=== PATIENT | female | born 1955 | race Caucasian/White ===

== ENCOUNTER 2024-02-16 08:17 | Emergency (ER) | payer OTHER, SELFPAY ==
[2024-02-16] VITALS (7 sets, daily range): BP systolic 113–152; BP diastolic 63–106; BMI 15.5
--- NOTE | 2024-02-16 09:14 | ED.GENMED ---
History of Present Illness
General
Chief Complaint: Abdominal Pain
Time Seen by Provider: 02/16/24 09:01
History of Present Illness
History of Present Illness:
Patient is a 68-year-old female with a history of fibromyalgia, gastritis, chronic abdominal pain who presents to the emergency department with chronic abdominal pain. She states her symptoms have been ongoing for years. She reports worsening
stress recently with regards to her mother who is on hospice. She notes that this typically makes her pain worse. She reports severe epigastric abdominal pain. She denies any vomiting or nausea. Denies any constipation or diarrhea. Pain is not
radiating. States that she takes diazepam for this. Notes that when she was given Dilaudid in the past this helped. Patient has been worked up for this and has had an abdominal MRI last year that was normal.
Past History
Past History
ED Past Medical History: COPD, GERD and Other (fibermyalgia); Negative HTN or Hypercholesterolemia
ED Past Surgical History: Appendectomy
Social History
Tobacco: Smoker
Alcohol: None
Drug: None
Personal: Single
Living: alone
Phy Exam
Physical Exam
Physical Exam:
GENERAL APPEARANCE: Thin, nontoxic appearing
EYES lids/conjunctiva normal
EARS/NOSE/THROAT Mucous membranes tacky,
HEAD/NECK normocephalic atraumatic, neck is supple.
RESPIRATORY respiratory effort normal, speaks in full sentences, no accessory muscle use. Lungs clear to auscultation without rhonchi, wheezes, rales
CARDIAC Regular rate and rhythm, no edema.
ABDOMINAL no distention. Soft. Localized tenderness in the epigastric region
MUSCLES/EXTREMITIES No abnormal range of motion, no swelling.
SKIN Warm, pink and dry. No rashes
NEUROLOGICAL Speech is clear and appropriate. Normal level of consciousness. 5/5 strength in all extremities.
PSYCH Normal mood and affect. Judgement/competence is appropriate
Course
Orders/Labs/Results
Orders:
Orders
02/16/24 08:21
Electrocardiogram (*1) Urgent
Reason for Study: Abdominal Pain
02/16/24 08:22
EKG- Treatment ONCE
02/16/24 09:13
0.9% Sodium Chloride 500 ml [Nss] 500 ml IV BOLUS
Famotidine [Pepcid] 20 mg PO NOW STA
Pantoprazole [Protonix IV] 40 mg IV NOW STA
Pulse Ox/cont/shift [RESP] Stat
Quantity: 1
02/16/24 09:33
Complete Blood Count/With Diff Urgent
Comprehensive Metabolic Panel Urgent
Lipase Urgent
Troponin I Urgent
02/16/24 11:05
HYDROmorphone [Dilaudid] 0.5 mg IV NOW STA
02/16/24 11:31
Urinalysis Reflex To Culture Urgent
Date Specimen was Collected: 02/16/24
Time Specimen was Collected: 11:03
Urine Microscopic Reflex Cult Urgent
Abnormal Lab Results
02/16/24 02/16/24
09:33 11:31
RBC 5.41 H 10^6/uL
(4.20-5.40)
Hgb 17.7 H g/dL
(12.0-16.0)
Hct 51.4 H %
(37.0-47.0)
MCH 32.7 H pg
(27.0-31.0)
Glucose 121 H mg/dl
(70-99)
Leukocyte Esterase Rfl Trace A
(Negative)
02/16/24 09:33
02/16/24 09:33
Vital Signs
Initial and Last Documented VS:
Initial Vital Signs
Temp Pulse Resp BP Pulse Ox
98.2 F 91 20 133/91 97
02/16/24 08:19 02/16/24 08:19 02/16/24 08:19 02/16/24 08:19 02/16/24 08:19
Last Documented Vital Signs
Temp Pulse Resp BP Pulse Ox
98.2 F 70 20 113/63 91
02/16/24 08:19 02/16/24 14:00 02/16/24 14:00 02/16/24 14:00 02/16/24 14:00
*Critical Care Note
Total Time (30-74mins, 75-104mins- exclusive of procedures): Not Applicable
Update Note
Update Note:
Spoke to patient's primary Dr. Dr. Mckeon. He agrees with workup thus far and agrees with attempting dose of Dilaudid to break cycle of pain. He will follow-up with patient
ED Attending Note
ED Attending Note
ED Attending Note:
Patient presents to the emergency department with acute on chronic abdominal pain. She is nontoxic-appearing and has a reassuring abdominal exam without any peritoneal signs or signs of perforation. Labs are reassuring. Reached out to patient's
primary Dr. Dr. Mckeon, there is no response. Attempted to call his cell phone without response as well. Patient reports that whenever she gets like this she usually gets 1 dose of IV pain meds and that breaks her acute pain cycle. Will trial
this.
-
Portions of this chart may have been created with voice recognition software.� Occasional wrong word or��sound alike� substitutions may have occurred due to the inherent limitations of voice recognition software.
Discharge Plan
Departure
Patient Disposition: Home (Routine Discharge)
Date of Disposition: 02/16/24
Time of Disposition: 13:35
Patient with high blood pressure during this ER visit?: No
Discharge Problem:
acute on chronic abdominal pain
Instructions: Abdominal Pain
Prescriptions:
No Action
diazepam 5 MG tablet
5 mg PO QPM
cephalexin [Keflex] 500 MG capsule
500 mg PO BID Qty: 10 1RF
doxycycline hyclate 100 mg capsule
100 mg PO BID Qty: 20 0RF
Referrals:
Taurus Mckeon, DO [Family Provider] -
Activity Restrictions/Additional Instructions:
Please follow-up with your primary doctor for recheck in the next couple of days. Return to the emergency department with new or worsening symptoms.
Interventions
Interventions:
*Risk Screen - Suicide Last Done: 02/16/24 14:24
*General Assessment Last Done: 02/16/24 09:07
*Neglect/Abuse Screening Last Done: 02/16/24 09:07
ED- Fall Risk Assessment Last Done: 02/16/24 14:24
*ED COVID-19 Vaccine History Last Done: 02/16/24 14:24
*Nursing Disposition Last Done: 02/16/24 14:24
[facility] Assessment Last Done: 02/16/24 09:30
Discharge Date and Time
Discharge Date/Time: 02/16/24 14:24
Print Language: YEMENI
[2024-02-16] MEDS: PEPCID 20 MG PO (09:27)
[2024-02-16] MEDS: NSS 500 IV (09:27)
[2024-02-16] MEDS: PROTONIX IV 40 MG IV (09:28)
[2024-02-16 09:39] LABS: % Basophils 0.7 % (0-2); % Eosinophils 0.4 % (0-6); % Immature Granulocytes 0.2 % (0-0.5); % Lymphocytes 23.1 % (20.5-51.1); % Monocytes 5.4 % (1.7-9.3); % Neutrophils 70.2 % (42.2-75.2); Absolute Basophils 0.1 10^3/uL (0-0.2); Absolute Monocytes 0.5 10^3/uL (0.1-0.6); Hematocrit 51.4 % (37.0-47.0); Hemoglobin 17.7 g/dL (12.0-16.0); Mean Corp Hgb Conc. 34.4 g/dL (33.0-37.0); Mean Corpuscular Hgb 32.7 pg (27.0-31.0); Nucleated Red Blood Cells % 0 %; Platelet Count 250 10^3/uL (130-400); Red Blood Cell Count 5.41 10^6/uL (4.20-5.40); Red Cell Dist. Width 12.6 % (11.5-14.5); White Blood Cell Count 8.5 10^3/uL (4.8-10.8)
[2024-02-16 09:53] LABS: ALT (SGPT) 18 U/L (0-35); AST (SGOT) 24 U/L (14-36); Albumin 4.3 g/dl (3.5-5.0); Alkaline Phosphatase 99 U/L (38-126); Blood Urea Nitrogen 12 mg/dl (7-17); Calcium 9.9 mg/dl (8.4-10.2); Carbon Dioxide 28 mmol/L (22-30); Chloride 103 mmol/L (98-107); Estimated Creatinine Clearance 50 ml/min; Glucose 121 mg/dl (70-99); Potassium 4.2 mmol/L (3.5-5.1); Sodium 139 mmol/L (135-145); Total Bilirubin 0.5 mg/dl (0.2-1.3); Total Protein 6.8 g/dl (6.3-8.2); eGFR > 60.00
[2024-02-16 09:58] LABS: Lipase 88 U/L (23-300)
[2024-02-16 10:03] LABS: Troponin I < 0.012 ng/ml
[2024-02-16] MEDS: DILAUDID 0.5 MG IV (11:26)
[2024-02-16 11:53] LABS: Urine Albumin Negative (Neg - Trace); Urine Bilirubin Negative (Negative); Urine Character Clear (Clear); Urine Color Yellow; Urine Glucose Negative (Negative); Urine Ketone Negative (Negative); Urine Leukocyte Trace (Negative); Urine Nitrite Negative (Negative); Urine Occult Blood Negative (Negative); Urine Specific Gravity 1.015 (<1.030); Urine Urobilinogen Negative (Neg - 1+)
[2024-02-16 12:08] LABS: Urine Mucus Few
[2024-02-16 12:09] LABS: Urine Amorphous Seen; Urine Red Blood Cell 0-2 /HPF (0-2); Urine Urothelial Cell 0-2 /LPF (FEW)
== END 2024-02-16 14:24 | disposition home or self-care (01) ==
LOC: EMR 08:17
PROVIDERS: EMERGENCY PHYSICIAN Emergency Medicine; FAMILY PHYSICIAN Family Medicine
DX: R10.13 Epigastric pain (principal); G89.29 Other chronic pain; M79.7 Fibromyalgia; K21.9 Gastro-esophageal reflux disease without esophagitis; Z73.3 Stress, not elsewhere classified; J44.9 Chronic obstructive pulmonary disease, unspecified; F17.200 Nicotine dependence, unspecified, uncomplicated; Z88.8 Allergy status to other drugs, medicaments and biological substances
CPT/HCPCS: 99284; 96374; 96375; 96361 ×2; 94760; 80053; 81003; 81015; 83690; 84484; 85025; 93005

== ENCOUNTER → 2024-02-25 08:31 | Outpatient (REF) | payer OTHER, SELFPAY | LOC: RAD 08:31 | PROVIDERS: ATTENDING PHYSICIAN Family Medicine | DX: R10.9 Unspecified abdominal pain (principal) | CPT/HCPCS: 74246 ==

== ENCOUNTER 2024-09-22 14:24 | Emergency (ER) | payer OTHER, SELFPAY ==
[2024-09-22 14:58] VITALS: BP 117/75
[2024-09-22 15:22] LABS: % Basophils 0.6 % (0-2); % Eosinophils 0.6 % (0-6); % Immature Granulocytes 0.3 % (0-0.5); % Lymphocytes 23.7 % (20.5-51.1); % Neutrophils 68.8 % (42.2-75.2); Absolute Basophils 0.1 10^3/uL (0-0.2); Absolute Eosinophils 0.1 10^3/uL (0-0.7); Absolute Lymphocytes 2.3 10^3/uL (1.2-3.4); Absolute Monocytes 0.6 10^3/uL (0.1-0.6); Absolute Neutrophils 6.7 10^3/uL (1.4-6.5); Hemoglobin 16.8 g/dL (12.0-16.0); Mean Corp Hgb Conc. 33.6 g/dL (33.0-37.0); Mean Corpuscular Hgb 32.9 pg (27.0-31.0); Mean Platelet Volume 9.9 fL (7.4-10.4); Nucleated Red Blood Cells % 0 %; Platelet Count 240 10^3/uL (130-400); Red Cell Dist. Width 11.9 % (11.5-14.5); White Blood Cell Count 9.7 10^3/uL (4.8-10.8)
[2024-09-22 15:39] LABS: ALT (SGPT) 21 U/L (0-35); AST (SGOT) 22 U/L (14-36); Albumin 4.5 g/dl (3.5-5.0); Alkaline Phosphatase 92 U/L (38-126); Blood Urea Nitrogen 14 mg/dl (7-17); Carbon Dioxide 29 mmol/L (22-30); Chloride 103 mmol/L (98-107); Glucose 110 mg/dl (70-99); Potassium 4.4 mmol/L (3.5-5.1); Sodium 139 mmol/L (135-145); Total Bilirubin 0.6 mg/dl (0.2-1.3); Total Protein 6.8 g/dl (6.3-8.2); eGFR > 60.00
[2024-09-22 15:45] LABS: Lipase 84 U/L (23-300)
[2024-09-22 15:57] LABS: Troponin I < 0.012 ng/ml
[2024-09-22 17:12] VITALS: BP 143/89
--- NOTE | 2024-09-22 18:04 | ED.GENMED ---
History of Present Illness
General
Chief Complaint: Chest Pain
Source: patient and records
Time Seen by Provider: 09/22/24 17:40
History of Present Illness
History of Present Illness:
69-year-old female with past medical history of chronic abdominal pain, GERD, COPD presenting to the emergency department for evaluation of a multitude of symptoms including her continued and reoccurring abdominal pain, fatigue, lack of p.o. intake,
hair loss, chest discomfort and a lesion intraorally that she noticed about ago. Patient stating that she has been to this emergency department multiple times for her pain without any specific answer as well as has followed up with GI who has
performed colonoscopy and endoscopy without any abnormal findings. Patient is also gone to pain management where she reports she got intra-abdominal injections in late April/early May which did seem to help for a short period of time but
symptoms returned and she is not followed up with the pain management since. Patient notes her symptoms today are not different than any of her previous visits other than the lesion on her palate. Patient does note she still smokes about half a
pack per day. Denies any fevers, chills, rigors or any other concerns.
Past History
Past History
ED Past Medical History: COPD, GERD and Other (fibermyalgia); Negative HTN or Hypercholesterolemia
ED Past Surgical History: Appendectomy
Social History
Tobacco: Smoker
Alcohol: None
Drug: None
Personal: Single
Living: alone
Review of Systems
Review of Systems
All Other Systems: ROS reviewed and negative except as documented in HPI and ROS
Phy Exam
Physical Exam
Physical Exam:
GENERAL: Alert , in no apparent distress, thin, upset and anxious
EYE: clear conjunctiva b/l
HEAD: NCAT
ENT: o/p clr, mmm. Well-circumscribed hard and soft palate lesion measuring approximately 1 cm in length and 6 to 7 mm in width, erythematous with white plaque along the proximalmost portion. No vesicles
CARDIAC: Regular rate and rhythm .
LUNGS: Clear breath sounds bilaterally, no acute respiratory distress, no wheezes/rales/rhonchi
ABDOMEN: Soft, without focal tenderness, no r/g, no cvat
NEUROLOGICAL: Alert and oriented
SKIN: Warm and dry, skin intact.
MUSCULOSKELETAL: No edema, well perfused.
PSYCH: Normal and appropriate interaction.
Scores
Heart Failure Risk
Heart Failure Risk Score: Not Applicable
Heart Score for Chest Pain Patients
STEMI patient?: Not applicable
Withdrawal Assessment of Alcohol
Withdrawal Assessment Completed?: Not applicable
Course
Orders/Labs/Results
Orders:
Orders
09/22/24 14:28
Electrocardiogram (*1) Urgent
Reason for Study: Chest Pain
EKG- Treatment ONCE
09/22/24 15:14
CMP [Comprehensive Metabolic Panel] Urgent
Complete Blood Count/With Diff Urgent
Lipase Urgent
Troponin I Urgent
Abnormal Lab Results
09/22/24
15:14
Hgb 16.8 H g/dL
(12.0-16.0)
Hct 50.0 H %
(37.0-47.0)
MCH 32.9 H pg
(27.0-31.0)
Absolute Neuts (auto) 6.7 H 10^3/uL
(1.4-6.5)
Glucose 110 H mg/dl
(70-99)
09/22/24 15:14
09/22/24 15:14
Vital Signs
Initial and Last Documented VS:
Initial Vital Signs
Temp Pulse Resp BP Pulse Ox
98.6 F 88 18 117/75 96
09/22/24 14:58 09/22/24 14:58 09/22/24 14:58 09/22/24 14:58 09/22/24 14:58
Last Documented Vital Signs
Temp Pulse Resp BP Pulse Ox
98.6 F 92 16 143/89 95
09/22/24 14:58 09/22/24 17:12 09/22/24 17:12 09/22/24 17:12 09/22/24 17:12
MDM/Problems Addressed
Differential Diagnosis Includes:
Acute on chronic unspecified abdominal pain, less concern for an acute surgical abdomen given the chronicity of symptoms, given her smoking history considered vasculopathic issue however symptoms do not seem to be worse with eating or suggestive of
vascular etiology, GERD/gastritis.
Secondary concern for potential malignancy of the palate given her smoking history. The lesion does not appear to be infectious
MDM/Problems Addressed:
69-year-old female presenting to the emergency department for evaluation of a multitude of symptoms centered around chronic based abdominal pain. She was also noting some chest discomfort. Labs and EKG were initiated and all within normal limits.
Patient has been worked up extensively as an outpatient for her abdominal symptoms with no clear etiology found and I continue to believe that there is no acute emergent abdominal pathology today. Somewhat more pressing is the new lesion patient
noticed in her palate over the last few weeks and given her smoking history I do have a degree of concern for malignancy. Patient reports she was sent to the ER by primary care provider so we will notify them via [facility] text as well as help with
outpatient follow-up with ENT due to the lesion. Anticipate discharge home.
Chronic conditions affecting care: Other (Chronic abdominal pain)
*Pulse Oximetry
Patient hypoxic: no
*Critical Care Note
Total Time (30-74mins, 75-104mins- exclusive of procedures): Not Applicable
Data Reviewed
Review of Other/Old Records Reveals: Labs, Records and Radiology Studies
Patient Management
Discussion with other providers: PCP and Production Line Manager
Escalation/DeEscalation of care consider admission/obs:
Message sent to primary care provider about patient's workup here in the emergency department however no response back. I sent a picture of the palate lesion to ear nose and throat who states patient can call the office and follow-up next week for
further evaluation. At this time I do think it is reasonable for patient to be discharged home with continued outpatient workup. Aware of return precautions to the emergency department.
ED Attending Note
-
Portions of this chart may have been created with voice recognition software.� Occasional wrong word or��sound alike� substitutions may have occurred due to the inherent limitations of voice recognition software.
Discharge Plan
Departure
Patient Disposition: Home (Routine Discharge)
Date of Disposition: 09/22/24
Time of Disposition: 18:19
Patient with high blood pressure during this ER visit?: Yes
Discharge Problem:
Chronic abdominal pain, Lesion of mouth
Instructions: Chronic pain
Prescriptions:
No Action
diazepam 5 MG tablet
5 mg PO QPM
cephalexin [Keflex] 500 MG capsule
500 mg PO BID Qty: 10 1RF
doxycycline hyclate 100 mg capsule
100 mg PO BID Qty: 20 0RF
Referrals:
Todd Bass MD [Active] - (ENT - Please call for appointment)
Interventions
Interventions:
*Risk Screen - Suicide Last Done: 09/22/24 18:38
*General Assessment Last Done: 09/22/24 18:38
*Neglect/Abuse Screening Last Done: 09/22/24 18:38
*ED- Fall Risk Assessment Last Done: 09/22/24 18:38
*ED COVID-19 Vaccine History Last Done: 09/22/24 18:38
*Nursing Disposition Last Done: 09/22/24 18:42
ED- Cardiac Assessment Last Done: 09/22/24 18:38
Discharge Date and Time
Discharge Date/Time: 09/22/24 18:48
Print Language: ARGENTINE
== END 2024-09-22 18:48 | disposition home or self-care (01) ==
LOC: EMR 14:24
PROVIDERS: Emergency Medicine; EMERGENCY PHYSICIAN Emergency Medicine; FAMILY PHYSICIAN Family Medicine
DX: G89.29 Other chronic pain (principal); R10.9 Unspecified abdominal pain; K13.79 Other lesions of oral mucosa; R03.0 Elevated blood-pressure reading, without diagnosis of hypertension; F17.210 Nicotine dependence, cigarettes, uncomplicated
CPT/HCPCS: 99284; 80053; 83690; 84484; 85025; 93005

== ENCOUNTER → 2025-01-09 13:30 | Outpatient (REF) | payer OTHER, SELFPAY | LOC: HWRAD 13:30 | PROVIDERS: ATTENDING PHYSICIAN Nurse Practitioner Adult Health; FAMILY PHYSICIAN Family Medicine | DX: R63.4 Abnormal weight loss (principal); R10.9 Unspecified abdominal pain | CPT/HCPCS: 71250; 74176 ==